=== PATIENT | male | born 1990 | race African-American/Black ===

== ENCOUNTER → 2024-04-20 10:07 | Outpatient (REF) | payer OTHER, SELFPAY ==
--- NOTE | 2024-04-20 10:33 | ECG_ITS ---
Test Reason : LIGHTED HEAD Blood Pressure : / mmHG Vent. Rate : 071 BPM Atrial Rate : 071 BPM P-R Int : 150 ms QRS Dur : 078 ms QT Int : 368 ms P-R-T Axes : 049 032 025 degrees QTc Int : 399 ms Normal sinus rhythm Normal ECG No previous ECGs available Referred By: Brooke Garcia Electronically Signed By:Jesus Ames
== END ==
LOC: HO.CARD 10:07
PROVIDERS: Visit Provider Nurse Practitioner Psychiatric/Mental Health
DX: Z79.899 Other long term (current) drug therapy (principal)
CPT/HCPCS: 93005

== ENCOUNTER → 2024-04-20 10:33 | Outpatient (BNV) | payer OTHER, SELFPAY | PROVIDERS: Visit Provider Internal Medicine Cardiovascular Disease | DX: R42 Dizziness and giddiness (principal); Z79.899 Other long term (current) drug therapy | CPT/HCPCS: 93010 ==